=== PATIENT | male | born 1990 | race Caucasian/White ===

== ENCOUNTER 2023-12-16 07:57 | Emergency (ER) | payer OTHER ==
[~2023-12-16] VITALS: Ht 167.6 cm; Wt 95.3 kg
[2023-12-16 07:59] VITALS: BP 124/71; PULSE 72; RESP 18; TEMP 97.6; O2SAT 98
[2023-12-16] MEDS ORDERED: ALUMINUM HYD/MAG/SIMETHICONE 30 ML UDC ONE (09:16)
[2023-12-16] MEDS ORDERED: DICYCLOMINE HCL LIQUID 10 MG/5 ML UDC ONE (09:16)
[2023-12-16] MEDS: LIDOCAINE 5% 1 EA PATCH TP ONE (09:19)
[2023-12-16] MEDS: ONDANSETRON 4 MG ODT PO ONE (09:19)
[2023-12-16] MEDS: DICYCLOMINE HCL LIQUID 20 MG, ALUMINUM HYD/MAG/SIMETHICONE 30 ML, LIDOCAINE VISCOUS 2% ... PO ONE (09:19)
[2023-12-16] MEDS ORDERED: MIRABULK PO (10:29)
[2023-12-16] MEDS ORDERED: CYCL-711 PO (10:29)
[2023-12-16] MEDS ORDERED: BEN10 PO (10:29)
[2023-12-16 10:36] VITALS: BP 125/72; PULSE 78; RESP 16; TEMP 98; O2SAT 99
== END 2023-12-16 10:36 | disposition home or self-care (01) ==
LOC: MED 07:57
DX: K59.00 Constipation, unspecified (principal); Z88.0 Allergy status to penicillin; Z88.8 Allergy status to other drugs, medicaments and biological substances
CPT/HCPCS: 74018; 99284; Q0162